=== PATIENT | male | born 2000 | race Caucasian/White ===

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

== ENCOUNTER 2022-11-26 08:38 | Emergency (ER) | payer OTHER, SELFPAY ==
[2022-11-26] MEDS ORDERED: Tetracaine 0.5% PF 4 ML BOT ONE (08:44)
[2022-11-26] MEDS ORDERED: Fluorescein Opthalmic Strip ONE (08:44)
== END 2022-11-26 09:22 | disposition home or self-care (01) ==
LOC: NAV ERS 08:38
DX: T15.02XA Foreign body in cornea, left eye, initial encounter (principal); F17.210 Nicotine dependence, cigarettes, uncomplicated; W45.8XXA Other foreign body or object entering through skin, initial encounter; Y93.89 Activity, other specified; Y92.69 Other specified industrial and construction area as the place of occurrence of the external cause
CPT/HCPCS: 99283